=== PATIENT | male | born 1965 | race Caucasian/White ===

== ENCOUNTER 2023-06-28 05:52 | Day surgery (SDC) | payer OTHER, SELFPAY ==
[2023-06-28 06:15] VITALS: BP 143/100; PULSE 66; RESP 20; TEMP 36.7; O2SAT 100
--- NOTE | 2023-06-28 07:13 | PM.HPGS ---
History of Present Illness History of Present Illness Consent: Risks, benefits, and alternatives have been discussed and questions answered. Patient agrees to proceed with procedure. Chief complaint: Personal History of Polyps Narrative: Elie Bowser is a 57 year old male presents for screening colonoscopy. 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 Patient reports his current weight appetite and bowel movements are normal. He denies abdominal pain. Patient has had no bleeding. Family history is noncontributory. Review of Systems Review of Systems: Review of systems is noncontributory. [facility] Past Medical History Medical History Dyslipidemia History of 2019 novel coronavirus disease (COVID-19) Seasonal asthma Social History Social History Smoking status: Former smoker (quit in 20s) Alcohol intake: current Alcohol use details: 5-6 Substance use: never Substance use type: does not use Do You Feel Safe in your Home?: Yes Lack of Transportation: No Lack of Food: Never True Current Housing: I Have Housing Concerned About Future Housing: No Difficulty Paying Gas/Electric Bills: No Difficulty Paying for Meds: No Currently Unemployed: No Education: Associate Degree Difficulty w/ Childcare or Family Care: No Living arrangements: with family Occupation/Education: occupation Gender identity (if verbalized by the patient): Male Spiritual care concerns: No Agree to blood products: Yes Meds Home Medications and Allergies Home Medications Medication Instructions Recorded Confirmed Type sodium,potassium,mag sulfates 17.5 See Rx Instructions PO .COMPLEX 06/22/23 06/28/23 Rx gram-3.13 gram-1.6 gram oral soln #354 mL (Suprep Bowel Prep Kit) Allergies Allergy/AdvReac Type Severity Reaction Status Date / Time No Known Allergies Allergy Verified 06/28/23 06:20 Exam Narrative: Physical exam reveals patient to be alert. Vital signs stable. HEENT exam is unremarkable. Patient is anicteric. Lungs are clear to auscultation and percussion. Is without murmur or extra sounds. Abdomen bowel sounds are present soft nontender with no organomegaly. Digital external rectal exam normal. Assessment and Plan Assessment and plan (1) History of colon polyps: Code(s): Z86.010 - Personal history of colonic polyps Status: Acute Assessment and Plan: Patient has a history of benign tubular adenomatous colon polyp in 2018. Plan for surveillance colonoscopy at 5 year intervals.
--- NOTE | 2023-06-28 07:21 | WPDANESEPPF ---
Anes - Initial Pre Proc Eval Procedure: Operation Date: 06/28/23 07:30 Proposed Procedures p Diagnostic Colonoscopy - Mat Diane MD Date/Time: 06/28/23 07:21 Surgeon: Mat Diane MD Pre Op Diagnosis: Personal History of Polyps Patient Data Age: 57 Gender: M Height: 1.83 m Weight: 96.3 kg Allergies Allergy/AdvReac Type Severity Reaction Status Date / Time No Known Allergies Allergy Verified 06/28/23 06:20 Home Medications Medication Instructions Recorded Confirmed Type sodium,potassium,mag sulfates 17.5 See Rx Instructions PO .COMPLEX 06/22/23 06/28/23 Rx gram-3.13 gram-1.6 gram oral soln #354 mL (Suprep Bowel Prep Kit) Patient hx anesthesia problems: none Family hx anesthesia problems: none Results Review: All pre-operative results and documents have been reviewed as part of the pre-operative evaluation. [facility] Past Medical History Medical History Dyslipidemia History of 2019 novel coronavirus disease (COVID-19) Seasonal asthma Social History Social History Smoking status: Former smoker (quit in 20s) Alcohol intake: current Alcohol use details: 5-6 Substance use: never Substance use type: does not use Do You Feel Safe in your Home?: Yes Lack of Transportation: No Lack of Food: Never True Current Housing: I Have Housing Concerned About Future Housing: No Difficulty Paying Gas/Electric Bills: No Difficulty Paying for Meds: No Currently Unemployed: No Education: Associate Degree Difficulty w/ Childcare or Family Care: No Living arrangements: with family Occupation/Education: occupation Gender identity (if verbalized by the patient): Male Spiritual care concerns: No Agree to blood products: Yes Anes - Eval Final PreProcedure Day of Procedure 06/28/23 07:21 Patient weight: overweight Heart: regular rate and rhythm Lungs: clear to auscultation Airway: Mallampati scale class II Neurological: alert and oriented Last oral intake: >/= 8 hours ASA classification: II Emergent: no Anesthetic plan: proceed Anesthesia type and monitoring: general GIVS and standard monitoring Results Review: All pre-operative results and documents have been reviewed as part of the pre-operative evaluation. Informed Consent: The patient's anesthetic plan and its attendant risks and benefits were discussed with the patient/family/POA. Questions were solicited and answers provided to the satisfaction of the patient/family/POA.
[2023-06-28] MEDS: LACTATED RINGERS 1,000 ML 150 ML IV CONT (07:28)
[2023-06-28 07:47] VITALS: BP 124/81; PULSE 72; RESP 16; O2SAT 100
[2023-06-28 07:50] VITALS: BP 139/88; PULSE 70; RESP 16; O2SAT 100
[2023-06-28 08:00] VITALS: BP 129/93; PULSE 60; RESP 16; O2SAT 98
--- NOTE | 2023-06-28 08:44 | WPDANESPN ---
Anes - Prog Note Post-Op Date/Time: 06/28/23 08:44 Cardiovascular status: normal Respiratory status: normal Airway patency: baseline Mental status: baseline Post-Op hydration status: normal Vital Signs: Last Vital Signs Temp 36.7 C 06/28/23 06:15 Pulse 60 06/28/23 08:00 Resp 16 06/28/23 08:00 BP 129/93 H 06/28/23 08:00 Pulse Ox 98 06/28/23 08:00 O2 Del Method Room Air 06/28/23 08:00 Pain Score (VAS): 0 I/O: Intake & Output 06/27/23 06/28/23 06/28/23 23:59 07:59 15:59 Intake Total 0 Balance 0 Patient Feedback: Patient satisfied with anesthetic care.
== END 2023-06-28 08:21 | disposition home or self-care (01) ==
PROVIDERS: PCP Family Medicine; Visit Provider Internal Medicine Gastroenterology
PROC: 0DJD8ZZ Inspection of Lower Intestinal Tract, Via Natural or Artificial Opening Endoscopic (ICD-10-PCS; CPT 45378; principal; 2023-06-28 07:30)
DX: Z86.010 Personal history of colon polyps (principal)
CPT/HCPCS: 45378